=== PATIENT | male | born 1965 | race Hispanic/Latino ===

== ENCOUNTER 2017-11-14 07:12 | Observation (INO) | payer BC ==
[2017-11-12 09:23] LABS: BASOPHILS % 0.4 % (0.0-1.0); EOSINOPHILS # (AUTO) 0.2 (0.0-0.4); EOSINOPHILS % 3.4 % (0.0-6.0); HEMATOCRIT 39.5 % (38.2-49.6); HEMOGLOBIN 13.2 g/dL (14.0-18.0); LYMPHOCYTES # (AUTO) 1.4 (1.0-3.2); LYMPHOCYTES % 25.9 % (18.0-39.1); MEAN CORPUSCULAR HEMOGLOBIN 31.4 pg (28-32); MEAN CORPUSCULAR HGB CONC 33.4 g/dL (31-35); MEAN CORPUSCULAR VOLUME 93.8 fL (81-99); MONOCYTES # (AUTO) 0.4 (0.2-0.8); MONOCYTES % 8.2 % (4.4-11.3); NEUTROPHILS # (AUTO) 3.3 (2.1-6.9); NEUTROPHILS % 61.4 % (38.7-80.0); PLATELET COUNT 128 x10e3/uL (140-360); RED BLOOD COUNT 4.21 x10e6/uL (4.3-5.7); RED CELL DISTRIBUTION WIDTH 13.7 % (11.7-14.4)
[2017-11-12 09:36] LABS: INR 1.11; PROTHROMBIN TIME 13.5 seconds (11.9-14.5)
[2017-11-12 09:37] LABS: PARTIAL THROMBOPLASTIN TIME 28.3 seconds (23.8-35.5)
[2017-11-12 09:41] LABS: ANION GAP 10.3 mmol/L (8-16); BLOOD UREA NITROGEN 11 mg/dL (7-26); BUN/CREATININE RATIO 12 (6-25); CALCIUM 9.2 mg/dL (8.4-10.2); CARBON DIOXIDE 27 mmol/L (22-29); CHLORIDE 106 mmol/L (98-107); CREATININE, SERUM 0.92 mg/dL (0.72-1.25); EST GLOMERULAR FILTRATION RATE > 60 ML/MIN (60-); GLUCOSE 121 mg/dL (74-118); POTASSIUM 4.3 mmol/L (3.5-5.1); SODIUM 139 mmol/L (136-145)
[2017-11-12 12:09] LABS: EOSINOPHILS % (MANUAL) 1 % (0-7); LYMPHOCYTES % (MANUAL) 26 % (19-48); MONOCYTES % (MANUAL) 11 % (3.4-9.0); NEUTROPHILS % (MANUAL) 62 % (40-74); PLATELET ESTIMATE ADEQUATE; POLYCHROMASIA FEW; RBC MORPHOLOGY COMMENT NORMAL
--- NOTE | 2017-11-12 12:11 | Diagnostic Imaging Report ---
PROCEDURE: X-RAY CHEST, TWO VIEWS COMPARISON: None. INDICATIONS: PRE OPERATIVE CHEST X-RAY FOR X-SPINE SURGERY FINDINGS: LUNGS: No consolidations or edema. PLEURA: No effusions or pneumothorax. HEART \T\ MEDIASTINUM: The heart is within normal size-limits. BONES \T\ SOFT TISSUES: No acute findings. Partially visualized lower cervical spine anterior fixation plate. CONCLUSION: No acute thoracic abnormality. Boaz Jaquez D.O. Dictated by: Boaz Jaquez D.O. on 11/12/2017 at 12:12 Electronically approved by: Boaz Jaquez D.O. on 11/12/2017 at 12:12
[~2017-11-14] VITALS: Ht 180.3 cm; Wt 114.8 kg
[~2017-11-14 07:12] MED LIST: ADVIL PO; CEFAZOLIN SOD 2 GM/D5W 50ML 50 ML IV ONE
--- OUTSIDE RECORDS SUMMARY | 2017-11-14 07:14 | XMS REPORT ---
[facility] Address Unknown Phone Unavailable Care Team Providers Care Financial Services Specialist Name Role Phone MILA TO Unavailable Unavailable Problems This patient has no known problems. Allergies, Adverse Reactions, Alerts This patient has no known allergies or adverse reactions. Medications This patient has no known medications. Results Test Description Test Time Test Comments Text Results Atomic Results Result Comments CHEST 2 VIEWS [place] [address] Patient Name: ABRAHAM PERRY MR #: [id number] : 1965 Age/Sex: 52/M Req #: [id number] Adm Physician: Ordered by: MILA TO MD Report #: [id number] Location: OR Room/Bed: Procedure: [id number] DX/CHEST 2 VIEWS Exam Date: 11/12/17 Exam Time: 0950 REPORT STATUS: Signed PROCEDURE: X-RAY CHEST, TWO VIEWS COMPARISON: None. INDICATIONS: PRE OPERATIVE CHEST X-RAY FOR X-SPINE SURGERY FINDINGS: LUNGS: No consolidations or edema. PLEURA: No effusions or pneumothorax. HEART T MEDIASTINUM: The heart is within normal size-limits. BONES T SOFT TISSUES: No acute findings. Partially visualized lower cervical spine anterior fixation plate. CONCLUSION: No acute thoracic abnormality. Nereida Jaquez D.O. Dictated by: Nereida Jaquez D.O. on 11/12/2017 at 12:12 Electronically approved by: Nereida Jaquez D.O. on 11/12/2017 at 12:12 Dictated By: NEREIDA JAQUEZ DO 1212 Transcribed By: ERIKA on 11/12/17 1212 COPY TO: MILA TO MD
[2017-11-14] MEDS ORDERED: THROMBIN FOR SOLN 5,000 UNIT VIAL ONE (07:24)
[2017-11-14] MEDS ORDERED: BACITRACIN 50,000 UNIT VIAL ONE (07:24)
[2017-11-14] MEDS ORDERED: BUPIVACAINE 0.5%/EPI 30 ML SDV INJ ONE (07:24)
[2017-11-14] MEDS ORDERED: GELATIN SPONGE SZ 100 ONE (07:24)
[2017-11-14] MEDS ORDERED: ZOLPIDEM TARTRATE 5 MG TAB PO PRN (10:30)
[2017-11-14] MEDS ORDERED: MORPHINE SULFATE 5 MG/ML VIAL IM PRN (10:30)
[2017-11-14] MEDS ORDERED: HYDROMORPHONE 2MG/ML INJ IV PRN (10:30)
[2017-11-14] MEDS ORDERED: PROMETHAZINE HCL (IM) 25 MG/ML VIAL IM PRN (10:30)
[2017-11-14] MEDS ORDERED: MAGNESIUM/ALUMINUM/SIMETHICONE 30 ML UDC PO PRN (10:30)
[2017-11-14] MEDS ORDERED: ACETAMINOPHEN 325 MG TAB PO PRN (10:30)
[2017-11-14] MEDS ORDERED: ONDANSETRON HCL INJ 2 MG/ML VIAL IV PRN (10:30)
[2017-11-14] MEDS ORDERED: ONDANSETRON HCL 4 MG ORAL DISINTEGRATING TAB SL PRN (11:00)
[2017-11-14 11:52] VITALS: BP 143/73
[2017-11-14] MEDS: LACTATED RINGER'S 1,000 ML IV SCH ×2 (12:16→18:47)
[2017-11-14 12:33] VITALS: BP 143/73
--- NOTE | 2017-11-14 12:50 | Operative Report ---
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 PROCEDURES 1. C4-5 anterior cervical diskectomy, microsurgical osteophyte resection and allograft fusion, 77009. 2. Preparation of [employer] cortical cancellous allograft, 56561. 3. C4-5 anterior cervical plating with Synthes ZPN plate, 78800. ANESTHESIA: General. INDICATIONS: Patient is a man who has previously had C5-7 anterior cervical fusion and plating in the distant past. He now presents with C4-5 spondylosis, foraminal stenosis and disk herniation above the level of his previous fusion. He was taken to the operating room for anterior cervical decompression and fusion. PROCEDURE: After induction of general anesthesia, the patient was placed on the operating table in the supine position. The right side of the neck was prepped and draped in sterile fashion. The fluoroscopic C-arm was positioned in cross-table lateral orientation. A small transverse incision was created on the right side of the neck superimposed on the C4-5 disk space. The platysma was divided in line with the incision. A subplatysmal dissection was carried out. An avascular plane of dissection was developed medial to the sternocleidomastoid muscle and was followed medial to the carotid sheath to the anterior border of the cervical spine. The deep cervical fascia was opened. The esophagus was retracted to the left. The attachments of the longus coli muscles to the anterolateral aspects of vertebral bodies of C4 and C5 were divided. The anterior longitudinal ligament was resected. [place] posts were inserted into C4 and C5. The C5 post was placed in the middle of the previous plate. A [place] distractor was used to distract the disk space. The anterior annulus of the disk was incised with a #11 blade. The contents of the C4-5 disk were thoroughly evacuated with angled curets and pituitary rongeurs. The posterior osteophytes were meticulously drilled with a 2-mm cutting bur on a high-speed drill until they were completely removed. The posterior annulus of the disk, herniated disk material and the posterior longitudinal ligament were resected layer by layer until the dura was fully exposed and decompressed. The medial aspects of the uncinate processes were resected bilaterally to further expose and decompress the origins of the corresponding nerve roots. After satisfactory decompression had been achieved, the endplates were prepared for fusion. The disk space was sized and found to be 9 mm in height. A piece of MTF cortical cancellous allograft measuring 9 mm in thickness was selected and prepared in saline and loaded onto a Synthes ZPN plate. The construct was then inserted into the C4-5 disk space under distraction and lateral fluoroscopic guidance and tamped in place until the anterior margin of the plate was flush with the anterior margin of the vertebral bodies. The plate was then screwed to C4 and C5 endplates with 2 pairs of 14-mm screws. All screws were locked. The wound was copiously irrigated with Bacitracin solution. Hemostasis was secured. The retractor was removed. The platysma was closed with 3-0 Vicryl sutures. The skin was closed with 4-0 Monocryl sutures in subcuticular fashion. Steri-strips and dressing were applied. The patient was awakened, extubated and taken to the postanesthesia care unit in stable condition. No intraoperative complications were encountered. Estimated blood loss was 10 mL. Job#: [id number]
[2017-11-14] MEDS ORDERED: CEFAZOLIN SOD 1 GM/NS 50ML 50 ML IV SCH (14:00)
[2017-11-14] MEDS: CEFAZOLIN SOD 1 GM VIAL IV SCH ×2 (14:20→22:04)
[2017-11-14 15:35] VITALS: BP 152/81
[2017-11-14] MEDS: OXYCODONE/ACETAMINOPHEN 5-325 1 EACH TABLET PO PRN ×3 (15:46→23:24)
[2017-11-14] MEDS ORDERED: ONDANSETRON HCL INJ 2 MG/ML VIAL ONE (17:17)
[2017-11-14] MEDS ORDERED: DEXAMETHASONE SOD PHOS INJ 4 MG/ML VIAL ONE (17:17)
[2017-11-14] MEDS ORDERED: ACETAMINOPHEN 1000 MG/100 ML IV ONE (17:17)
[2017-11-14] MEDS ORDERED: SEVOFLURANE INHAL SOLN 250 ML PEN BTL ONE (17:17)
[2017-11-14] MEDS ORDERED: GLYCOPYRROLATE INJ 1MG/ 5 ML SYR ONE (17:17)
[2017-11-14] MEDS ORDERED: LIDOCAINE HCL 2% JELLY 5 ML TUBE ONE (17:17)
[2017-11-14] MEDS ORDERED: LIDOCAINE HCL 2% LOCAL INJ 5 ML SDV VIAL INJ ONE (17:17)
[2017-11-14] MEDS ORDERED: NEOSTIGMINE 5 MG/5ML SYR ONE (17:17)
[2017-11-14] MEDS ORDERED: PROPOFOL IV EMULSION 10 MG/ML 20 ML VIAL ONE (17:17)
[2017-11-14] MEDS ORDERED: ROCURONIUM BROMIDE 10 MG/ML 5ML VIAL ONE (17:17)
[2017-11-14] MEDS ORDERED: FENTANYL CITRATE/PF 100MCG/2 ML INJ ONE (17:34)
[2017-11-14] MEDS ORDERED: MIDAZOLAM HCL 2 MG/2 ML VIAL ONE (17:34)
[2017-11-14] MEDS: CARISOPRODOL 350 MG TAB PO PRN (17:57)
[2017-11-14 20:00] VITALS: BP 138/81
[2017-11-15] VITALS: BP 135/69
[2017-11-15 04:00] VITALS: BP 141/65
[2017-11-15] MEDS: CEFAZOLIN SOD 1 GM VIAL IV SCH (06:17)
--- NOTE | 2017-11-15 07:16 | Diagnostic Imaging Report ---
C-SPINE 2 VIEWS AP LATERAL HISTORY: Cervical spine fusion COMPARISON: None FINDINGS: Bones: No displaced fracture. Osseous alignment is within normal limits. 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 IMPRESSION: Patient is status post lower cervical spine fusion as described above without evidence of hardware failure or loosening. Signed by: Dr. Chadwick Dale M.D. on 11/15/2017 7:12 AM
[2017-11-15 07:46] VITALS: BP 141/65
[2017-11-15 08:00] VITALS: BP 145/74
[2017-11-15] MEDS: OXYCODONE/ACETAMINOPHEN 5-325 1 EACH TABLET PO PRN (09:44)
[2017-11-15] MEDS: CARISOPRODOL 350 MG TAB PO PRN (09:44)
== END 2017-11-15 10:10 | disposition home or self-care (01) ==
LOC: OR 07:12 → IMCU 10:44
PROVIDERS: ADMIT Neurological Surgery; ATTEND Neurological Surgery
DX: M50.121 Cervical disc disorder at C4-C5 level with radiculopathy (principal)
CPT/HCPCS: 20931; 22551; 22845; 36415; 71046; 72040; 77003; 80048; 85025; 85610; 85730; 86850; 86900; 88304; 93005; C1713 ×2; C9359; G0378 ×2; J0690 ×2; J1100; J2001 ×2; J2250; J2270; J2405; J7120

== ENCOUNTER 2023-01-03 12:36 | Inpatient (IN) | payer BC, OTHER ==
[~2023-01-03] VITALS: Ht 180.3 cm; Wt 117.9 kg
[~2023-01-03 12:36] MED LIST changes: -CEFAZOLIN SOD 2 GM/D5W 50ML 50 ML IV ONE
[2023-01-03 13:13] LABS: BASOPHILS % 0.7 % (0.0-1.0); EOSINOPHILS # (AUTO) 0.1 (0.0-0.4); EOSINOPHILS % 1.7 % (0.0-6.0); HEMATOCRIT 39.9 % (38.2-49.6); HEMOGLOBIN 13.2 g/dL (14.0-18.0); LYMPHOCYTES # (AUTO) 0.9 (1.0-3.2); LYMPHOCYTES % 15.2 % (18.0-39.1); MEAN CORPUSCULAR HEMOGLOBIN 30.7 pg (28-32); MEAN CORPUSCULAR HGB CONC 33.1 g/dL (31-35); MEAN CORPUSCULAR VOLUME 92.8 fL (81-99); MONOCYTES # (AUTO) 0.7 (0.2-0.8); MONOCYTES % 11.6 % (4.4-11.3); NEUTROPHILS # (AUTO) 4.2 (2.1-6.9); NEUTROPHILS % 69.8 % (38.7-80.0); PLATELET COUNT 155 x10e3/uL (140-360); RED CELL DISTRIBUTION WIDTH 13.6 % (11.7-14.4)
[2023-01-03 13:35] LABS: ALBUMIN 3.4 g/dL (3.5-5.0); ALBUMIN/GLOBULIN RATIO 0.9 (0.8-2.0); ANION GAP 11.2 mmol/L (8-16); CALCIUM 8.9 mg/dL (8.4-10.2); CREATININE, SERUM 1.05 mg/dL (0.72-1.25); POTASSIUM 3.2 mmol/L (3.5-5.1)
[2023-01-03] MEDS ORDERED: Vancomycin IV 1 GM in SODIUM CHLORIDE 0.9% 250ML 250 ML IV ONE (14:00)
[2023-01-03 14:25] LABS: CREATINE KINASE 43 IU/L (30-200)
[2023-01-03 17:30] VITALS: BP 155/70; PULSE 64; RESP 18; TEMP 98.5; O2SAT 100
[2023-01-03 17:41] VITALS: BP 155/70; PULSE 64; RESP 18; TEMP 98.5; O2SAT 100
[2023-01-03 17:45] VITALS: BP 155/70; PULSE 64; RESP 18; TEMP 98.5; O2SAT 100
[2023-01-03] MEDS ORDERED: No Home Medications (17:53)
[2023-01-03 20:00] VITALS: BP 140/67; PULSE 59; RESP 20; TEMP 99.1; O2SAT 100
[2023-01-03] MEDS ORDERED: POTASSIUM CHLORIDE 20 MEQ TAB CR PO STA (20:02)
[2023-01-04] VITALS (8 sets, daily range): BP systolic 118–169; BP diastolic 57–74; PULSE 54–62; RESP 18–20; TEMP 98.1–99.5; O2SAT 98–100
[2023-01-04] MEDS ORDERED: SODIUM CHLORIDE 0.9% 250ML 250 ML ONE (00:14)
[2023-01-04] MEDS: Vancomycin IV 1 GM in SODIUM CHLORIDE 0.9% 250ML 250 ML IV SCH ×2 (01:50→14:09)
[2023-01-04 05:38] LABS: BASOPHILS % 0.8 % (0.0-1.0); EOSINOPHILS # (AUTO) 0.1 (0.0-0.4); EOSINOPHILS % 2.5 % (0.0-6.0); HEMATOCRIT 35.2 % (38.2-49.6); HEMOGLOBIN 11.7 g/dL (14.0-18.0); LYMPHOCYTES # (AUTO) 0.9 (1.0-3.2); LYMPHOCYTES % 18.8 % (18.0-39.1); MEAN CORPUSCULAR HEMOGLOBIN 30.8 pg (28-32); MEAN CORPUSCULAR HGB CONC 33.2 g/dL (31-35); MEAN CORPUSCULAR VOLUME 92.6 fL (81-99); MONOCYTES # (AUTO) 0.6 (0.2-0.8); MONOCYTES % 11.6 % (4.4-11.3); NEUTROPHILS # (AUTO) 3.2 (2.1-6.9); NEUTROPHILS % 65.3 % (38.7-80.0); PLATELET COUNT 142 x10e3/uL (140-360); RED CELL DISTRIBUTION WIDTH 13.5 % (11.7-14.4)
[2023-01-04 06:11] LABS: ALBUMIN 2.7 g/dL (3.5-5.0); ALBUMIN/GLOBULIN RATIO 0.8 (0.8-2.0); ANION GAP 10.5 mmol/L (8-16); CALCIUM 8.1 mg/dL (8.4-10.2); CREATININE, SERUM 0.84 mg/dL (0.72-1.25); POTASSIUM 3.5 mmol/L (3.5-5.1)
[2023-01-04 06:34] LABS: FERRITIN 452.73 ng/mL (21.81-274.66); THYROID STIMULATING HORMONE 2.075 uIU/mL (0.350-4.940)
[2023-01-04] MEDS ORDERED: ACETAMINOPHEN 325 MG TAB PO PRN (09:15)
[2023-01-04] MEDS: DOCUSATE SODIUM 100 MG CAP PO SCH (15:04)
[2023-01-04] MEDS: FUROSEMIDE INJ 10 MG/ML 4 ML VIAL IV SCH ×2 (15:04→20:14)
[2023-01-04] MEDS ORDERED: ENOXAPARIN SOD INJ 40 MG/0.4 ML SYR SC SCH (17:00)
[2023-01-04] MEDS: SENNOSIDES 8.6 MG TAB PO SCH (17:49)
[2023-01-05 01:10] VITALS: BP 123/58; PULSE 56; RESP 18; TEMP 98.7; O2SAT 100
[2023-01-05] MEDS: Vancomycin IV 1 GM in SODIUM CHLORIDE 0.9% 250ML 250 ML IV SCH (01:49)
[2023-01-05 05:22] VITALS: BP 120/75; PULSE 52; RESP 17; TEMP 98.1; O2SAT 100
[2023-01-05 07:32] VITALS: BP 111/58; PULSE 53; RESP 16; TEMP 98.5; O2SAT 99
[2023-01-05 08:21] VITALS: BP 111/58; PULSE 53; RESP 16; TEMP 98.5; O2SAT 99
[2023-01-05] MEDS: SENNOSIDES 8.6 MG TAB PO SCH (09:00)
[2023-01-05] MEDS: DOCUSATE SODIUM 100 MG CAP PO SCH (09:00)
[2023-01-05] MEDS: FUROSEMIDE INJ 10 MG/ML 4 ML VIAL IV SCH (09:05)
[2023-01-05 09:06] LABS: BASOPHILS % 0.7 % (0.0-1.0); EOSINOPHILS # (AUTO) 0.2 (0.0-0.4); EOSINOPHILS % 2.9 % (0.0-6.0); HEMATOCRIT 39.7 % (38.2-49.6); LYMPHOCYTES % 17.8 % (18.0-39.1); MEAN CORPUSCULAR HEMOGLOBIN 30.7 pg (28-32); MEAN CORPUSCULAR HGB CONC 32.7 g/dL (31-35); MEAN CORPUSCULAR VOLUME 93.6 fL (81-99); MONOCYTES # (AUTO) 0.6 (0.2-0.8); MONOCYTES % 10.5 % (4.4-11.3); NEUTROPHILS # (AUTO) 3.7 (2.1-6.9); NEUTROPHILS % 66.8 % (38.7-80.0); PLATELET COUNT 177 x10e3/uL (140-360); RED BLOOD COUNT 4.24 x10e6/uL (4.3-5.7); RED CELL DISTRIBUTION WIDTH 13.3 % (11.7-14.4)
[2023-01-05 09:28] LABS: ALBUMIN/GLOBULIN RATIO 0.8 (0.8-2.0); CALCIUM 8.8 mg/dL (8.4-10.2); CREATININE, SERUM 1.04 mg/dL (0.72-1.25); MAGNESIUM 2.1 MG/DL (1.3-2.1)
[2023-01-05 11:36] VITALS: BP 126/63; PULSE 52; RESP 19; TEMP 98.2; O2SAT 100
[2023-01-05] MEDS ORDERED: ULTRAM 50MG50 MG PO (12:41)
[2023-01-05] MEDS ORDERED: CIPRO500 MG PO (12:41)
[2023-01-05] MEDS ORDERED: DOXYCYCLINE HY100 MG PO (12:41)
== END 2023-01-05 13:55 | disposition home or self-care (01) | DRG 603 ==
LOC: ER 12:47 → ERHOLD 13:44 → MED/SURG3 16:42
PROVIDERS: ADMIT Internal Medicine; ATTEND Internal Medicine
DX: L03.116 Cellulitis of left lower limb (principal); L97.828 Non-pressure chronic ulcer of other part of left lower leg with other specified severity; I87.8 Other specified disorders of veins; A46 Erysipelas; R60.0 Localized edema; S81.802A Unspecified open wound, left lower leg, initial encounter; X58.XXXA Exposure to other specified factors, initial encounter; Y92.9 Unspecified place or not applicable; E66.01 Morbid (severe) obesity due to excess calories; F10.20 Alcohol dependence, uncomplicated; E87.6 Hypokalemia; D63.8 Anemia in other chronic diseases classified elsewhere; I87.2 Venous insufficiency (chronic) (peripheral); M19.90 Unspecified osteoarthritis, unspecified site; Z98.1 Arthrodesis status; Z20.822 Contact with and (suspected) exposure to COVID-19
CPT/HCPCS: 0223U; 36415; 71045; 80053; 80202; 82550; 82607; 82728; 83036; 83540; 83735; 83880; 84443; 84466; 84484; 85025; 87040; 93005; 93306; 93925; 93970; 99252; 99284; J1650; J1940; J2543; J7050